=== PATIENT | female | born 1940 | race Hispanic/Latino ===

== ENCOUNTER → 2020-12-20 | Emergency (ER) | payer MEDICARE ==
[~2020-12-20] VITALS: Ht 160 cm; Wt 52.2 kg
[~2020-12-20] MED LIST: ASPIRIN 81 MG CHEW TAB PO ONE; CLINDAMYCIN HC150 MG PO; CLONIDINE HCL0.1 MG PO; DILTIAZEM 24HR240 MG PO; LACTULOSE SYRUP 20 GM/30 ML UDC PO ONE; LEVOTHYROXINE75 MCG PO; MECLIZINE HCL25 MG PO; METOPROLOL TARTRATE INJ 1 MG/ML VIAL IV ONE; TRAMADOL-ACETAMI1 EA PO
[2020-12-20 09:44] LABS: BASOPHILS # (AUTO) 0.1 (0.0-0.1); BASOPHILS % 0.3 % (0.0-1.0); HEMATOCRIT 39.7 % (34.2-44.1); HEMOGLOBIN 12.5 g/dL (12.0-16.0); LYMPHOCYTES # (AUTO) 1.1 (1.0-3.2); LYMPHOCYTES % 6.4 % (18.0-39.1); MEAN CORPUSCULAR HEMOGLOBIN 27.7 pg (28-32); MEAN CORPUSCULAR HGB CONC 31.5 g/dL (31-35); MONOCYTES # (AUTO) 0.6 (0.2-0.8); MONOCYTES % 3.1 % (4.4-11.3); NEUTROPHILS # (AUTO) 15.7 (2.1-6.9); NEUTROPHILS % 89.6 % (38.7-80.0); PLATELET COUNT 291 x10e3/uL (140-360); RED BLOOD COUNT 4.51 x10e6/uL (3.6-5.1); RED CELL DISTRIBUTION WIDTH 13.7 % (11.7-14.4)
[2020-12-20 10:02] LABS: ALBUMIN 4.4 g/dL (3.5-5.0); ALBUMIN/GLOBULIN RATIO 1.3 (0.8-2.0); ANION GAP 17.2 mmol/L (8-16); CALCIUM 8.9 mg/dL (8.4-10.2); CREATININE, SERUM 0.91 mg/dL (0.57-1.11); POTASSIUM 3.2 mmol/L (3.5-5.1)
[2020-12-20 10:09] LABS: CREATINE KINASE MB 3.1 ng/mL (0-5.0)
[2020-12-20 10:45] LABS: CLARITY,URINE CLOUDY (CLEAR); COLOR,URINE YELLOW (YELLOW)
[2020-12-20 10:46] LABS: KETONES,URINE 1+ (NEGATIVE); LEUKOCYTE ESTERASE ,URINE NEGATIVE (NEGATIVE); NITRITE,URINE POSITIVE (NEGATIVE); PROTEIN,URINE DIPSTICK 2+ (NEGATIVE); URINE UROBILINOGEN 0.2 mg/dL (0.2 - 1)
[2020-12-20 10:50] LABS: BACTERIA,URINE FEW /HPF; EPITHELIAL CELLS,URINE FEW /LPF; RBC,URINE 0-5 /HPF (0-5); WBC,URINE (MAN) 0-5 /HPF (0-5)
[2020-12-20 10:51] LABS: AMORPHOUS SEDIMENT,URINE FEW (FEW); MUCUS,URINE FEW (RARE)
== END | disposition left against medical advice (07) ==
LOC: ER 09:30
DX: R10.33 Periumbilical pain (principal)
CPT/HCPCS: 36415; 74176; 80053; 81001; 82550; 82553; 83605; 84484; 85025; 93005; 99285